=== PATIENT | female | born 1975 | race Caucasian/White ===

== ENCOUNTER → 2023-05-09 10:38 | Outpatient (REF) | payer OTHER, SELFPAY | LOC: HWRAD 10:38 | PROVIDERS: ATTENDING PHYSICIAN Student in an Organized Health Care Education/Training Program | DX: K43.2 Incisional hernia without obstruction or gangrene (principal) | CPT/HCPCS: 74178; Q9967 ==

== ENCOUNTER → 2023-05-18 10:06 | Outpatient (REF) | payer OTHER, SELFPAY | LOC: HWWDC 10:06 | PROVIDERS: ATTENDING PHYSICIAN Student in an Organized Health Care Education/Training Program | DX: Z12.31 Encounter for screening mammogram for malignant neoplasm of breast (principal) | CPT/HCPCS: 77063; 77067 ==

== ENCOUNTER → 2023-10-09 06:37 | Day surgery (SDC) | payer OTHER, SELFPAY | LOC: GI 06:37 | PROVIDERS: ATTENDING PHYSICIAN Internal Medicine Gastroenterology | DX: Z12.11 Encounter for screening for malignant neoplasm of colon (principal); K64.0 First degree hemorrhoids; K62.89 Other specified diseases of anus and rectum; K57.30 Diverticulosis of large intestine without perforation or abscess without bleeding; D12.3 Benign neoplasm of transverse colon; R12 Heartburn; R19.7 Diarrhea, unspecified; R11.0 Nausea; K22.89 Other specified disease of esophagus; K44.9 Diaphragmatic hernia without obstruction or gangrene; K29.50 Unspecified chronic gastritis without bleeding; Z80.0 Family history of malignant neoplasm of digestive organs | CPT/HCPCS: 45380; 43239; 88305; 88342 ==

== ENCOUNTER → 2023-12-19 13:23 | Outpatient (REF) | payer OTHER, SELFPAY | LOC: HWRAD 13:23 | PROVIDERS: ATTENDING PHYSICIAN Family Medicine | DX: R41.3 Other amnesia (principal); G31.84 Mild cognitive impairment of uncertain or unknown etiology | CPT/HCPCS: 70450 ==

== ENCOUNTER → 2024-01-12 13:21 | Outpatient (REF) | payer OTHER, SELFPAY | LOC: RAD 13:21 | PROVIDERS: ATTENDING PHYSICIAN Family Medicine | DX: M79.672 Pain in left foot (principal); M79.671 Pain in right foot | CPT/HCPCS: 73630 ==

== ENCOUNTER 2024-03-05 14:09 | Emergency (ER) | payer OTHER, SELFPAY ==
[2024-03-05 14:11] VITALS: BP 110/78
--- NOTE | 2024-03-05 14:11 | ED.GENMED ---
ED Provider Triage
<Bobbi Damon PA-C - Last Filed: 03/05/24 14:17>
-
Patient seen by provider in Triage?: Seen in Triage
Attestation: A medical screening examination has been initiated by a qualified medical provider. Based on the assessment performed at this time, it has been determined that an emergent medical condition may exist and the patient has been informed
that further medical evaluation and possible additional diagnostic testing may be needed.
HPI: 48yoF here with vomiting and abdominal cramping x 4 days. Tmax 100.1. Initially had diarrhea but has not had a BM since . Hx of bowel rupture 7 years ago and missing 3 feet of colon due to prior surgery. LMP 7 years ago.
GENERAL: Alert , in no apparent distress
EYE: No visual abnormalities.
NECK: Trachea midline
ENT: No visible abnormalities.
LUNGS: No acute respiratory distress
NEUROLOGICAL: Alert and oriented
SKIN: Skin intact. No visible changes.
MUSCULOSKELETAL: Moving extremities normally
PSYCH: Normal and appropriate interaction.
This is a medical evaluation conducted in person to initiate diagnostic evaluation and provide initial therapeutics. Please see further documentation by the treating clinician.
Abdominal labs and CT abdomen with IV/PO contrast ordered.
History of Present Illness
<Bobbi Damon PA-C - Last Filed: 03/05/24 14:17>
General
Chief Complaint: Abdominal Symptoms
Time Seen by Provider: 03/05/24 18:55
<Alcides Head DO - Last Filed: 03/06/24 20:19>
General
Source: patient
Nursing documentation reviewed up to this point in time: agreed with
History of Present Illness
History of Present Illness:
48-year-old female presents to emergency room complaining of bloating of her abdomen, constipation and inability to pass any gas. Patient states she began feeling unwell 2 or 3 days ago when she had what she describes as a GI bug. She had nausea
vomiting and diarrhea. Patient does have a history of bowel surgery which has resulted in her having frequent diarrhea. Patient had a ruptured cecum requiring resection of the cecum and distal ileum. Though she did have an ileostomy for some time
and has been reversed. The nausea and vomiting has resolved.
Past History
<Bobbi Damon PA-C - Last Filed: 03/05/24 14:17>
Past History
ED Past Medical History: Other (PCV, raynauds, fibroids)
ED Past Surgical History: Other (Colostomy reversal)
Social History
Tobacco: Non-smoker
Alcohol: None
Drug: None
Personal: Single
Living: alone
Phy Exam
<Alcides Head DO - Last Filed: 03/06/24 20:19>
Physical Exam
Physical Exam:
General: Awake, Alert, Oriented X3. No acute distress.
Vitals: unremarkable
Head: Atraumatic
Eyes: Pupils equal, EOMI
Throat: Airway intact, no exudates
Neck: Trachea midline
Lungs: Clear and equal b/l
Heart: Regular rate, no murmurs
Abd: Soft, mildly distended, no significant tenderness to palpation, No pulsatile mass
Rectal: No stool in the vault
Neuro: Nonfocal
Skin: Warm, dry, no rash
Extremities: pulses equal b/l, no edema
Sepsis
<Alcides Haed DO - Last Filed: 03/06/24 20:19>
Sepsis Screening
Sepsis Assessment: Sepsis Ruled Out
Sepsis Screen
Sepsis Screen: Sepsis Ruled Out
Date: 03/06/24
Time: 20:18
Course
<Bobbi Damon PA-C - Last Filed: 03/05/24 14:17>
Orders/Labs/Results
Orders:
Orders
03/05/24 14:14
Iohexol [Omnipaque] See Protocol PO NOW STA
03/05/24 14:15
CT Abd/pel W Iv And Oral Contr Urgent
Comment:
Reason For Exam: Abd cramping, vomiting, prior colon resection
03/05/24 14:28
Complete Blood Count/With Diff Urgent
Comprehensive Metabolic Panel Urgent
Lipase Urgent
03/05/24 19:46
Enema- Treatment ONCE
Type: Soap Suds
Lactated Ringers [Lr] 500 ml IV BOLUS
03/05/24 20:03
Phosphate Enema [Fleet Phosphate Enema-Adult] 135 ml .ROUTE .[facility]
Abnormal Lab Results
03/05/24
14:28
RBC 4.02 L 10^6/uL
(4.20-5.40)
Hct 35.9 L %
(37.0-47.0)
MCH 31.6 H pg
(27.0-31.0)
Absolute Monos (auto) 0.9 H 10^3/uL
(0.1-0.6)
Monocytes % 13.6 H %
(1.7-9.3)
Potassium 3.4 L mmol/L
(3.5-5.1)
Glucose 103 H mg/dl
(70-99)
Total Protein 6.1 L g/dl
(6.3-8.2)
03/05/24 14:28
03/05/24 14:28
Vital Signs
Initial and Last Documented VS:
Initial Vital Signs
Temp Pulse Resp BP Pulse Ox
98.5 F 91 16 110/78 99
03/05/24 14:11 03/05/24 14:11 03/05/24 14:11 03/05/24 14:11 03/05/24 14:11
Last Documented Vital Signs
Temp Pulse Resp BP Pulse Ox
98.3 F 80 18 102/84 99
03/05/24 19:30 03/05/24 21:23 03/05/24 21:23 03/05/24 21:23 03/05/24 21:23
<Alcides Head, DO - Last Filed: 03/06/24 20:19>
Orders/Labs/Results
Orders:
Orders
03/05/24 14:14
Iohexol [Omnipaque] See Protocol PO NOW STA
03/05/24 14:15
CT Abd/pel W Iv And Oral Contr Urgent
Comment:
Reason For Exam: Abd cramping, vomiting, prior colon resection
03/05/24 14:28
Complete Blood Count/With Diff Urgent
Comprehensive Metabolic Panel Urgent
Lipase Urgent
03/05/24 19:46
Enema- Treatment ONCE
Type: Soap Suds
Lactated Ringers [Lr] 500 ml IV BOLUS
03/05/24 20:03
Phosphate Enema [Fleet Phosphate Enema-Adult] 135 ml .ROUTE .[facility]
Abnormal Lab Results
03/05/24
14:28
RBC 4.02 L 10^6/uL
(4.20-5.40)
Hct 35.9 L %
(37.0-47.0)
MCH 31.6 H pg
(27.0-31.0)
Absolute Monos (auto) 0.9 H 10^3/uL
(0.1-0.6)
Monocytes % 13.6 H %
(1.7-9.3)
Potassium 3.4 L mmol/L
(3.5-5.1)
Glucose 103 H mg/dl
(70-99)
Total Protein 6.1 L g/dl
(6.3-8.2)
03/05/24 14:28
03/05/24 14:28
Vital Signs
Initial and Last Documented VS:
Initial Vital Signs
Temp Pulse Resp BP Pulse Ox
98.5 F 91 16 110/78 99
03/05/24 14:11 03/05/24 14:11 03/05/24 14:11 03/05/24 14:11 03/05/24 14:11
Last Documented Vital Signs
Temp Pulse Resp BP Pulse Ox
98.3 F 80 18 102/84 99
03/05/24 19:30 03/05/24 21:23 03/05/24 21:23 03/05/24 21:23 03/05/24 21:23
<Alcides Head DO - Last Filed: 03/06/24 20:19>
MDM/Problems Addressed
Differential Diagnosis Includes:
Constipation, bowel obstruction, phonatory bowel disease
MDM/Problems Addressed:
Patient presents with abdominal distention, discomfort, poor oral intake and inability to pass gas. CT shows an area of small intestine that appears somewhat inflamed. No other significant abnormalities. On my review of the CAT scan. There also
appears to be a fair amount of stool at the distal sigmoid colon proximal rectum. Suspect this is causing the patient's pressure. The inflamed ileum may be related to viral illness. Patient had significant surgery at [place] several years ago for a
perforated colon. Cecum and distal ileum were resected. She has also had a reversal of an ileostomy. She has chronic diarrhea from this. All in all I am not entirely sure the inflamed ileum is something of high concern at this point. Feel
patient stable for discharge home with clear liquid diet. She is she had an enema provided here which resulted in significant bowel movement. She feels much better after this.
<Alcides Head DO - Last Filed: 03/06/24 20:19>
*Radiology
Radiology exam reviewed: radiology read reviewed
*Pulse Oximetry
Patient hypoxic: no
*Critical Care Note
Total Time (30-74mins, 75-104mins- exclusive of procedures): Not Applicable
ED Attending Note
<Bobbi Damon PA-C - Last Filed: 03/05/24 14:17>
-
Portions of this chart may have been created with voice recognition software.� Occasional wrong word or��sound alike� substitutions may have occurred due to the inherent limitations of voice recognition software.
Discharge Plan
Departure
Patient Disposition: Home (Routine Discharge)
Date of Disposition: 03/05/24
Time of Disposition: 21:03
Patient with high blood pressure during this ER visit?: No
Condition: Good
Discharge Problem:
Abdominal pain, Constipation
Instructions: Constipation, Adult (DC), BLOOD PRESSURE
Prescriptions:
No Action
Lactobacillus acidophilus [Probiotic] 1 EACH capsule
1 ea PO DAILY
alprazolam 0.25 MG tablet
0.25 mg PO BID
quetiapine [Seroquel] 50 MG tablet
50 mg PO HS
ruxolitinib [Jakafi] 5 MG tablet
15 mg PO BID
oxycodone 5 MG tablet
5 mg PO BID PRN (Reason: pain)
sulfamethoxazole-trimethoprim 1 TABLET tablet
1 tab PO BID Qty: 20 0RF
cephalexin [Keflex] 500 MG capsule
500 mg PO QID Qty: 40 0RF
gabapentin 300 MG capsule
300 mg PO BID Qty: 20 0RF
Rx Instructions:
Take twice a day as needed for pain
oxycodone 5 MG tablet
5 mg PO Q4HPRN PRN (Reason: pain) Qty: 20 0RF
gabapentin 300 MG capsule
300 mg PO BID Qty: 20 0RF
oxycodone 5 MG tablet
5 mg PO Q4HPRN PRN (Reason: pain) Qty: 20 0RF
Referrals:
Brody,Agustin, DO [Family Provider] -
Stand Alone Forms: Return to Work
Interventions
Interventions:
*Risk Screen - Suicide Last Done: 03/05/24 19:28
*General Assessment Last Done: 03/05/24 19:28
*Neglect/Abuse Screening Last Done: 03/05/24 19:28
*ED COVID-19 Vaccine History Last Done: 03/05/24 19:28
*Nursing Disposition Last Done: 03/05/24 21:23
[facility] Assessment Last Done: 03/05/24 19:28
Discharge Date and Time
Discharge Date/Time: 03/05/24 21:25
Print Language: EGYPTIAN
[2024-03-05] MEDS: OMNIPAQUE 50 ML PO (14:23)
[2024-03-05 14:39] LABS: % Basophils 0.6 % (0-2); % Eosinophils 0.5 % (0-6); % Immature Granulocytes 0.3 % (0-0.5); % Lymphocytes 22.1 % (20.5-51.1); % Monocytes 13.6 % (1.7-9.3); % Neutrophils 62.9 % (42.2-75.2); Absolute Lymphocytes 1.4 10^3/uL (1.2-3.4); Absolute Monocytes 0.9 10^3/uL (0.1-0.6); Absolute Neutrophils 3.9 10^3/uL (1.4-6.5); Hematocrit 35.9 % (37.0-47.0); Hemoglobin 12.7 g/dL (12.0-16.0); Mean Corp Hgb Conc. 35.4 g/dL (33.0-37.0); Mean Corpuscular Hgb 31.6 pg (27.0-31.0); Mean Corpuscular Volume 89.3 fL (81.0-99.0); Mean Platelet Volume 9.2 fL (7.4-10.4); Nucleated Red Blood Cells % 0 %; Platelet Count 187 10^3/uL (130-400); Red Blood Cell Count 4.02 10^6/uL (4.20-5.40); Red Cell Dist. Width 11.8 % (11.5-14.5); White Blood Cell Count 6.3 10^3/uL (4.8-10.8)
[2024-03-05 15:00] LABS: ALT (SGPT) 32 U/L (0-35); AST (SGOT) 26 U/L (14-36); Alkaline Phosphatase 63 U/L (38-126); Blood Urea Nitrogen 16 mg/dl (7-17); Calcium 8.8 mg/dl (8.4-10.2); Carbon Dioxide 25 mmol/L (22-30); Chloride 100 mmol/L (98-107); Glucose 103 mg/dl (70-99); Lipase 24 U/L (23-300); Potassium 3.4 mmol/L (3.5-5.1); Sodium 137 mmol/L (135-145); Total Protein 6.1 g/dl (6.3-8.2); eGFR > 60.00
[2024-03-05 17:50] VITALS: BP 90/68
[2024-03-05 19:30] VITALS: BP 101/86
[2024-03-05 21:23] VITALS: BP 102/84
== END 2024-03-05 21:25 | disposition home or self-care (01) ==
LOC: EMR 14:09
PROVIDERS: Physician Assistant; EMERGENCY PHYSICIAN Emergency Medicine; FAMILY PHYSICIAN Family Medicine
DX: K59.00 Constipation, unspecified (principal); Z90.49 Acquired absence of other specified parts of digestive tract
CPT/HCPCS: 99284; 74177; 80053; 83690; 85025; Q9967

== ENCOUNTER → 2025-02-28 13:00 | Outpatient (REF) | payer OTHER, SELFPAY | LOC: RAD 13:00 | PROVIDERS: ATTENDING PHYSICIAN Nurse Practitioner Family; FAMILY PHYSICIAN Family Medicine | DX: M25.551 Pain in right hip (principal); M25.552 Pain in left hip; M54.50 Low back pain, unspecified | CPT/HCPCS: 72220; 73523 ==